=== PATIENT | male | born 1980 | race Caucasian/White ===

== ENCOUNTER 2021-12-09 23:57 | Emergency (ER) | payer BC, SELFPAY ==
--- NOTE | ~2021-12-09 | CT_ITS ---
EXAMINATION: CT brain wo con INDICATION: Head injury COMPARISON: None TECHNIQUE: Standard unenhanced head CT. The dose-length product (DLP) was 605.33 mGy-cm. The mA was a djusted according to patient size. Iterative reconstruction technique was employed. FINDINGS: There is no intracranial hemorrhage, acute infarction, or abnormal mass lesion. The ventric les are normal. There is no abnormal mass effect or midline shift. The vasquez-white matter differentiat ion is normal. The basal cisterns are patent. The orbits are normal. The paranasal sinuses, mastoids and calvarium are normal. IMPRESSION: 1. No acute intracranial abnormality. Reviewed, dictated and finalized at location A.
[2021-12-09 23:59] VITALS: BP 232/119; PULSE 98; RESP 20; TEMP 36.3; O2SAT 99
[2021-12-10] VITALS (24 sets, daily range): BP systolic 168–192; BP diastolic 95–141; PULSE 62–98; RESP 14–31; O2SAT 96–99
[2021-12-10] MEDS: LABETALOL HCL INJ 100 MG/20 ML VIAL 20 MG IV PUSH (00:16)
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
[2021-12-10] MEDS: amLODIPine BESYLATE 5 MG TABLET PO (01:49)
== END 2021-12-10 03:10 | disposition home or self-care (01) ==
PROVIDERS: Emergency Provider Emergency Medicine
DX: S09.90XA Unspecified injury of head, initial encounter (principal); I10 Essential (primary) hypertension; Y00.XXXA Assault by blunt object, initial encounter
CPT/HCPCS: 70450; 96374; 99284; A9270

== ENCOUNTER 2022-11-17 16:50 | Emergency (ER) | payer OTHER, SELFPAY ==
--- NOTE | 2022-11-17 16:56 | ED.HA ---
HPI - Headache General Stated Complaint: Headache Time Seen by Provider: 11/17/22 17:12 Mode of arrival: ambulatory Limitations: no limitations History of Present Illness HPI Narrative: 42-year-old male presents with concern for headache for about 1 week. He reports he has been out of his blood pressure medication for 1 month. He reports he can tell when his blood pressure is getting high by his symptoms which include irritability, headache, pressure under both arms, spotty vision. He is currently only having headache. He is in between primary care providers. He denies thunderclap headache. Reports headache is a 2/10. Reports headache is persistent, it may ease when he sleeps but returns when he wakes up. He denies weakness in any extremity, difficulty speaking or swallowing MD elicited complaint: headache Related Data Allergies Allergy/AdvReac Type Severity Reaction Status Date / Time No Known Allergies Allergy Verified 11/17/22 17:03 Review of Systems Review of Systems: CONSTITUTIONAL: Denies malaise, chills, sweats, or fever. EYES: Denies current visual changes, reports occasional spotty vision RESPIRATORY: Denies cough or dyspnea. NEUROLOGIC: Denies numbness, weakness. Reports headache. All systems reviewed & are unremarkable except as noted in HPI and below PMFSH Past Medical History Medical History Hypertension Family History Family History Other Family history of coronary artery disease Social History Social History Alcohol intake: never Comments At time of signature, agree with nursing past medical, surgical, social and family history. There is no relevant family history pertinent to the presenting complaint Exam Narrative: GENERAL: Well-appearing, well-nourished, and in no acute distress. HEAD: Normocephalic, atraumatic. EYES: PERRLA, sclera clear, and EOMI. No nystagmus. ENT: Nares clear, turbinates pink, no rhinorrhea or epistaxis. Mucous membranes moist. TM pearly vasquez with sharp light reflex bilaterally; no tragal tenderness. NECK: Supple. CHEST: No respiratory distress. Clear to auscultation. No bony deformities, no asymmetry. Speaks in full sentences. HEART: Regular rate and rhythm. No murmur heard. Normal peripheral pulses. EXTREMITIES: Grossly normal range of motion. No edema. Grossly normal strength and sensation. SKIN: Warm, dry, no visible rash. NEURO: Alert and oriented x3. No focal deficits. Cranial nerves II through XII grossly intact PSYCH: Normal mood and affect Course Course Emergency Course: Patient is aware of, understands and agrees to reasons to be transferred to emergency room Patient agrees to proceed directly to the emergency department. Portions of this record may have been created with voice recognition software Level of Care: Express Care Visit Vital Signs Vital signs: Reviewed. Transfer Transfered to: [facility] Transportation: Other (Private vehicle) Transfer rationale: Hypertensive urgency Accepting physician: Veto MDM - Headache MDM Narrative Medical decision making narrative: Exam findings warrant further evaluation emergency department; patient is non-toxic appearing and is in no distress. Critical Care Time Critical Care Time Critical Care Time: No Discharge Plan Discharge Clinical Impression: Hypertensive urgency Patient Disposition: Acute Care Hospital Condition: Stable Prescriptions: No Action amlodipine [Norvasc] 5 mg tablet 5 mg PO DAILY Qty: 90 1RF Follow-up/Referrals: UNKNOWN,DOCTOR [Non-Staff] - Time of Disposition: 17:22
[2022-11-17 17:02] VITALS: BP 208/123; PULSE 95; RESP 16; TEMP 36.7; O2SAT 99
[2022-11-17 17:04] VITALS: BP 208/123; PULSE 95; RESP 16; TEMP 36.7; O2SAT 99
== END 2022-11-17 17:22 | disposition short-term general hospital (02) ==
PROVIDERS: Emergency Provider Nurse Practitioner
DX: I16.0 Hypertensive urgency (principal)
CPT/HCPCS: 99213; G0463

== ENCOUNTER 2022-11-17 17:38 | Observation (INO) | payer OTHER, SELFPAY ==
--- NOTE | ~2022-11-17 | CT_ITS ---
EXAMINATION: CT brain wo con DATE: 11/17/2022 18:24 INDICATION: hyptertension, headache . TECHNIQUE: Computed tomography (CT) of the head was performed without intravenous contrast. The mA wa s adjusted according to patient size. Iterative reconstruction technique was employed. The dose-lengt h product was 605.33 mGy-cm. COMPARISON: 12/10/2021. FINDINGS: No acute intracranial hemorrhage or extra-axial fluid collection. No hydrocephalus, mass, or herniation. No acute ischemic infarct. Unremarkable dural venous sinus attenuation. No acute osseous abnormality. The aerated spaces are clear. IMPRESSION: No acute intracranial process. Reviewed, dictated and finalized at location K.
--- NOTE | ~2022-11-17 | US_ITS ---
EXAMINATION: US retroperitoneal duplex ltd DATE: 11/18/2022 14:06 CDT INDICATION: Hypertension TECHNIQUE: Multiple grayscale, color Doppler, and pulsed Doppler images of the kidneys and renal stephen araceli were obtained. COMPARISON: None. FINDINGS: The aorta peak systolic velocity is 126 cm/s. The right renal artery peak systolic velocity is 104 cm /s in the proximal segment, 172 cm/s in the mid segment, 72 cm/s in the distal segment. The left wilain l artery peak systolic velocity is 121 cm/s in the proximal segment, 81 cm/s in the mid segment, 77 c m/s in the distal segment. The renal artery/aorta systolic ratio on the right is 1.365 and on the left is 0.96. Notes: renal artery stenosis is >=180-200 cm/s or >3.5:1 ratio of renal artery velocity to aorta. Thi s correlates with >50-60% stenosis. IMPRESSION: 1. No Doppler evidence of renal artery stenosis. Reviewed, dictated and finalized at location A.
--- NOTE | ~2022-11-17 | XR_ITS ---
EXAMINATION: XR chest 1V Exam Date/Time: 11/17/2022 18:25 CDT HISTORY: hypertension Comparison: None. RESULT: Lines, tubes, and devices: None. Lungs and pleura: Clear. Cardiomediastinal silhouette: Unremarkable. Other: No acute osseous or upper abdominal finding. IMPRESSION: No acute cardiopulmonary process. Reviewed, dictated and finalized at location K.
[2022-11-17 17:41] VITALS: BP 219/114; PULSE 96; RESP 16; TEMP 36.7; O2SAT 98
--- NOTE | 2022-11-17 18:07 | ECG_ITS ---
Measurements Intervals [place] Rate: 89 P: 35 NM: 185 QRS: 44 QRSD: 109 T: 146 QT: 370 QTc: 452 Interpretive Statements SINUS RHYTHM LEFT VENTRICULAR HYPERTROPHY AND ST-T CHANGE BORDERLINE ST-T WAVE ABNORMALITY- INFERIOR LEADS BASELINE WANDER- V2-V6 BORDERLINE ECG NO PREVIOUS ECG AVAILABLE FOR COMPARISON Electronically Signed On 11-17-2022 20:19:52 CDT by Lauro Tristan D.O.
--- NOTE | 2022-11-17 18:16 | ED.HA ---
HPI - Headache General Chief Complaint: Headache Stated Complaint: HTN with LANDAVERDE Time Seen by Provider: 11/17/22 17:50 History of Present Illness HPI Narrative: 42 y/o M reports for evaluation from urgent care for a headache. Pt states he has been having a dull aching headach at the vertex of his head for ~3 days with intermittent surges of pulsating pain accompanied by seeing spots in his vision and numbness to the ventral aspect of his bilateral forearms. States the blurred vision and numbness lasts ~30 seconds then resolves. He went to urgent care for evaluation of his headache and was sent to the ED after his blood pressures were high. He states he currently is not having blurred vision or numbness and rates his headache a 2 out of 10. He has not taken anything for pain. He was started on 5 mg of amlodipine in February 2022 from the ED but discontinued his amlodipine after he ran out of his medication a couple months ago. States he never followed up with PCP. He denies chest pain or shortness of breath, nausea or vomiting, neck pain or back pain, abdominal pain, urinary changes, focal weakness, fever. Patient denies drug use other than marijuana. He does smoke a vape. Past family medical history significant for his father with CHF. Related Data Allergies Allergy/AdvReac Type Severity Reaction Status Date / Time No Known Allergies Allergy Verified 11/17/22 17:57 Review of Systems Review of Systems: CONSTITUTIONAL: Denies fever, chills EYES: See HPI ENT: Denies rhinorrhea, congestion, sore throat, or otalgia. CARDIOVASCULAR: Denies chest pain, palpitations, or edema. RESPIRATORY: Denies cough or dyspnea. GASTROINTESTINAL: Denies abdominal pain, nausea, vomiting, or diarrhea. GENITOURINARY: Denies dysuria or hematuria. SKIN: Denies rash or itching. MUSCULOSKELETAL: Denies back pain, joint pain, or myalgia. NEUROLOGIC: See HPI PSYCHIATRIC: Denies anxiety or depression. [facility] Past Medical History Medical History (Updated 11/18/22 @ 00:01 by Manuel Carrasco) Essential hypertension Nicotine dependence due to vaping tobacco product Obesity (BMI 30.0-34.9) Surgical History Surgical History (Updated 11/17/22 @ 23:48 by Chari Harrison DO) No history of previous surgery Family History Family History (Updated 11/17/22 @ 23:49 by Chari Harrison DO) Father Acute myocardial infarction, Onset Age: 60 Heart disease CHF (congestive heart failure) Social History Social History (Updated 11/17/22 @ 23:50 by Chari Harrison DO) Social History: The patient started smoking at age 23. He has smoked up to a pack of cigarettes per day but it switched to vaping in 2019. He vapes material that still has nicotine. 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 He has 1 son who is 16 years old. He rarely drinks alcohol and only in moderation. He is currently single but lives with his girlfriend. His girlfriend has 2 children. He smokes marijuana daily. 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 Patient resting comfortably exam bed. He is pleasant and conversational. HEAD: Normocephalic EYES: PERRLA, EOMI ENT: Nares clear. Mucous membranes moist. Oropharynx without tonsillar hypertrophy exudate or other lesions. Bilateral TMs are vasquez nonbulging. NECK: Supple. No nuchal rigidity. No cervical spino
[2022-11-17 18:25] LABS: Basophils Absolute Auto 0.1 K/mm3 (0.0-0.1); Basophils Percent Auto 0.7 % (0.2-1.2); Eosinophils Absolute Auto 0.2 K/mm3 (0-0.3); Eosinophils Percent Auto 2.1 % (0-4.4); Hematocrit 48.7 % (42.0-52.0); Hemoglobin 16.3 g/dL (14.0-18.0); Immature Granulocyte Absolute 0.05 K/mm3 (0.00-0.031); Immature Granulocyte Percent A 0.5 % (0-0.5); Lymphocytes Absolute Auto 2.92 K/mm3 (0.9-3.2); Lymphocytes Percent Auto 27.9 % (18.3-44.2); Mean Corpuscular HGB Conc 33.5 g/dl (32-36); Mean Corpuscular Hemoglobin 29.1 pg (26-34); Mean Corpuscular Volume 86.8 fl (80-100); Mean Platelet Volume 10.2 fl (7.4-10.4); Monocytes Absolute Auto 0.9 K/mm3 (0.1-0.6); Monocytes Percent Auto 8.3 % (2.6-8.5); Neutrophils Absolute Auto 6.4 K/mm3 (1.3-6.7); Neutrophils Percent Auto 60.5 % (45.5-73.1); Platelet Count Result 269 k/mm3 (150-375); Red Blood Count 5.61 M/mm3 (4.6-6.20); White Blood Count 10.5 K/mm3 (4.5-10.0)
[2022-11-17 18:26] LABS: Estimated CRCL calculation 123 ml/min; Estimated Glomerular Filt Rate > 60
[2022-11-17] MEDS: SODIUM CHLORIDE 0.9% IV 1,000 ML 999 ML IV CONT (18:33)
[2022-11-17] MEDS: ACETAMINOPHEN 500 MG TABLET 1000 MG PO (18:34)
[2022-11-17] MEDS: PROCHLORPERAZINE EDISYLATE 10 MG/2 ML VIAL IV PUSH (18:34)
[2022-11-17] MEDS: diphenhydrAMINE HCl INJ 50 MG/ML VIAL 25 MG IV PUSH (18:34)
[2022-11-17] MEDS: hydrALAZINE HCL 20 MG/ML VIAL 10 MG IV PUSH ×2 (19:27→22:24)
[2022-11-17 19:47] LABS: Alanine Aminotransferase 25 U/L (6-50); Alkaline Phosphatase 56 U/L (38-126); Anion Gap 6 mmol/L (8-16); Aspartate Amino Transferase 26 U/L (17-59); Bilirubin,Total 0.4 mg/dL (0.2-1.3); Blood Urea Nitrogen 14 mg/dL (9-20); Calcium 8.4 mg/dL (8.4-10.2); Carbon Dioxide 24 mmol/L (22-30); Chloride 108 mmol/L (98-107); Estimated CRCL calculation 137 ml/min; Estimated Glomerular Filt Rate > 60; Glucose 90 mg/dL (65-110); Potassium 3.5 mmol/L (3.4-5.0); Sodium 138 mmol/L (137-145); Troponin I 0.046 ng/mL (0.000-0.034)
[2022-11-17 19:51] LABS: Appearance Urine Clear (Clear); Bilirubin Urine Negative (Negative); Blood Urine Negative (Negative); Color Urine Yellow (Yellow); Glucose Urine UA Negative (Negative); Ketones Urine Negative (Negative); Leukocyte Esterase Ur Negative LEU/UL (Negative); Nitrate Urine Negative (Negative); Protein Urine Negative (Negative); Specific Grav Ur 1.017 (1.001-1.035); Urobilinogen Urine 0.2 mg/dL (<2.0); pH Urine 5.5 (5.0-9.0)
[2022-11-17 19:54] LABS: Add Urine Microscopic? NO
[2022-11-17] MEDS: amLODIPine BESYLATE 5 MG TABLET PO (20:38)
[2022-11-17 21:38] VITALS: BP 176/119; PULSE 71; RESP 15; O2SAT 97
--- NOTE | 2022-11-17 21:47 | PM.IMHP ---
H&P: HPI History of Present Illness Date/Time: 11/17/22 23:00 Chief Complaint: Headache, arm pain Narrative: 42-year-old male with a past medical history essential hypertension and obesity who presented to the ER with headache and bilateral posterior arm pain associated with some visual changes. On arrival to the ER patient was noted to be markedly hypertensive with blood pressures 230s/120. The patient was evaluated in the ER on approximately January and had blood pressures of 170-180 systolic. He was discharged home on Handshake and was given a 90 day supply with 1 refill. He ran out of the Antavo about 2 months ago. He thought that since he had made some lifestyle changes and had lost some weight that he probably did not need to worry about his blood pressures anymore. He failed to set up with a primary care physician and has not been checking his blood pressures at home. Approximately 3 days ago while at work he noticed a headache in the upper part of his head that is aching in nature ranging from a 2/10 intensity up to a 6/10 in intensity. It was associated with occasional specks of light in his vision and today he began having pain down his posterior upper arms. He denied any shortness of breath with activity. 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 He denies any palpitations. He denies any changes in urination. He has not had any nausea or vomiting. Denies any palpitations. He has been taking some Tylenol for his headache which improved his pain but it just recurs. His girlfriend tells him that he snores quite loudly. He does notice some mild lower extremity swelling from time to time after he has worked all day. He denies any orthopnea or paroxysmal nocturnal dyspnea. Review of Systems Review of Systems: 12 systems were reviewed with pertinent positives and negatives per HPI. Except as documented in the HPI, all other systems were reviewed and are negative. FOR[facility]LY [facility] Past Medical History Medical History Essential hypertension Nicotine dependence due to vaping tobacco product Obesity (BMI 30.0-34.9) Surgical History Surgical History (Updated 11/17/22 @ 23:48 by Chari Harrison DO) No history of previous surgery Family History Family History (Updated 11/17/22 @ 23:49 by Chari Harrison DO) Father Acute myocardial infarction, Onset Age: 60 Heart disease CHF (congestive heart failure) Social History Social History (Updated 11/17/22 @ 23:50 by Chari Harrison DO) Social History: The patient started smoking at age 23. He has smoked up to a pack of cigarettes per day but it switched to vaping in 2019. He vapes material that still has nicotine. 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 He has 1 son who is 16 years old. He rarely drinks alcohol and only in moderation. He is currently single but lives with his girlfriend. His girlfriend has 2 children. He smokes marijuana daily. Smoking status: Current every day smoker Tobacco type: e-cigarettes/vaping Alcohol intake: current Substance use: current Substance use type: marijuana Other substance usage details: Daily Lack of Transportation: No Lack of Food: Never True Current Housing: I Have Housing Concerned About Future Housing: No Difficulty Paying Gas/Electric Bills: No Difficulty Paying for Meds: No Currently Unemployed: No Education: Trade/Vocational Certificate Difficulty w/ Childcare or Family Care: No Additional occupation/education comments: [employer] Spiritual care concerns: No Meds Home Medications and Allergies Home Medications Medication Instructions Recorded Confirmed Type amlodipine 5 mg tablet (Norvasc) 5 mg PO DAILY #90 tabs 12/10/21 11/17/22 Rx Allergies Allergy/AdvReac Type Severity Reaction Status Date / Time No Known Allergies Allergy Verified 11/17/22 17:57
[2022-11-17 22:05] LABS: NT Pro B Type Natriuretic Pept 789 pg/mL (19.9-100)
[2022-11-17 22:12] VITALS: BP 186/139; PULSE 84; RESP 16; TEMP 36.4; O2SAT 100
--- NOTE | 2022-11-17 22:12 | ADMGEN ---
This patient, Brien Murray, was admitted to IMU Room 212-01. Patient/family oriented to hospital policies and general routines including ID bracelet, bed and alarms, visiting hours, pain management, procedures, bathroom and other care routines, personal items, smoking policy, room service/diet, and visiting hours. Information on how to activate the Rapid Response Team has been discussed. Patient/Family are encouraged to report perceived risks to care and to ask questions if they do not understand what they are told or what they should do.
[2022-11-17 22:13] VITALS: BMI 34.6
[2022-11-17 22:30] VITALS: PULSE 86
[2022-11-17 23:03] LABS: Troponin I 0.056 ng/mL (0.000-0.034)
[2022-11-17 23:52] VITALS: BP 156/114; PULSE 76; RESP 16; TEMP 36.5; O2SAT 100
[2022-11-18] VITALS (21 sets, daily range): BP systolic 165–214; BP diastolic 88–130; PULSE 68–123; RESP 16–20; TEMP 36.1–36.4; O2SAT 94–100
--- NOTE | 2022-11-18 | ECHO_ITS ---
Patient Info Name: Brien Murray Age: 42 years : 1980 Gender: Male Ht: 72 in Wt: 245 lbs BSA: 2.41 m2 HR: 81 bpm Heart Rhythm: Indeterminant Technical Quality: Good Exam Date: 11/18/2022 9:41 AM Exam Location: [facility] Patient Status: Outpatient Admit Date: 11/17/2022 Staff Ordering Physician: Chari Harrison DO Supervisor Slitting And Shipping: Prasad Pope RDCS Attending Provider: Chari Harrison DO Referring Physician: Hunter JORDAN; Exam Type: CA echo doppler color flow Study Info Indications - hypertensive crisis/elevated troponin Complete two-dimensional, color flow and Doppler transthoracic echocardiogram is performed. Summary 1. Complete two-dimensional, color flow and Doppler transthoracic echocardiogram is performed. 2. Left ventricular chamber dimension is moderately enlarged. 3. Left ventricular systolic function is mildly reduced, estimated at 50-55%. 4. There is severely increased left ventricular wall thickness. 5. The left ventricular diastolic function is grade I diastolic dysfunction. 6. Left atrial chamber dimension is mildly enlarged. 7. There is mild tricuspid valve regurgitation. Left Ventricle Left ventricular chamber dimension is moderately enlarged. Left ventricular systolic function is mildly reduced, estimated at 50-55%. There is severely increased left ventricular wall thickness. The left ventricular diastolic function is grade I diastolic dysfunction. Right Ventricle Right ventricular chamber dimension is normal. Right ventricular systolic function is normal. Left Atria Left atrial chamber dimension is mildly enlarged. Right Atria Right atrial chamber dimension is normal. Atrial Septum Intact interatrial septum visualized by color flow imaging. Aortic Valve The aortic valve is probable trileaflet. There is mild aortic valve sclerosis. There is no aortic valve stenosis. There is trace aortic valve regurgitation. Pulmonic Valve The pulmonic valve is normal. There is no pulmonic valve stenosis. There is trace pulmonic regurgitation. Mitral Valve The mitral valve has normal leaflets. There is no mitral valve stenosis. There is trace mitral valve regurgitation. Tricuspid Valve The tricuspid valve leaflets are normal. There is no significant tricuspid valve stenosis. There is mild tricuspid valve regurgitation. No pulmonary hypertension, estimated pulmonary arterial systolic pressure is 13 mmHg. Pericardium/Pleural The pericardium appears normal. There is no pericardial effusion. Inferior Vena Cava Normal inferior vena cava with >50% collapse upon inspiration consistent with normal right atrial pressure, 10 mmHg. Aorta The aortic root size at the sinus of Valsalva is mildly dilated. Left Ventricular Outflow Tract Name Value Normal LVOT 2D LVOT Diameter 2.0 cm LVOT Doppler LVOT Peak Gradient 3 mmHg LVOT Mean Gradient 2 mmHg LVOT VTI 18 cm LVOT VTI/AV VTI Ratio 0.8 LVOT Stroke Volume 57 ml LVOT CO 6.2 l/min LVOT CI 2.6 l/min/m2
[2022-11-18 01:40] LABS: Cholesterol 213 mg/dL (0-200); HDL Direct 50 mg/dL; Triglycerides 97 mg/dL (<150)
[2022-11-18 01:51] LABS: LDL Cholesterol Direct 118 mg/dL
[2022-11-18 02:11] LABS: Troponin I 0.061 ng/mL (0.000-0.034)
[2022-11-18] MEDS: amLODIPine BESYLATE 5 MG TABLET PO ×2 (08:47→16:29)
[2022-11-18] MEDS: ASPIRIN 81 MG ENTERIC TABLET PO (08:47)
[2022-11-18] MEDS: ENOXAPARIN 40 MG/0.4 ML SYRINGE SUB-Q (08:47)
--- NOTE | 2022-11-18 09:56 | PM.IMPN ---
Progress Note: A&P Assessment and Plan (1) Hypertensive urgency: Code(s): I16.0 - Hypertensive urgency Status: Inactive (2) Snoring: Code(s): R06.83 - Snoring Status: Acute (3) Elevated troponin: Code(s): R77.8 - Other specified abnormalities of plasma proteins Status: Acute (4) Nicotine dependence due to vaping tobacco product: Code(s): F17.290 - Nicotine dependence, other tobacco product, uncomplicated Status: Acute Plan Hypertension urgency Blood pressure is not controlled Increase Norvasc to 10 mg daily p.o., And hydrochlorothiazide 25 mg daily p.o.: Clonidine 0.1 mg b.i.d. p.o. Labetalol 20 mg IV push once Hydralazine 10 mg IV push as needed with parameters Follow renal Doppler, need to rule out renal artery stenosis Elevated troponin Possible demand ischemia, due to uncontrolled hypertension Continue aspirin 81 mg daily p.o., Imdur 60 mg daily p.o. ECG shows sinus rhythm, T-wave inversion lead 1 aVL Follow echocardiogram contour sander Consult welding estimator for evaluation treatment, The patient does snore and is obese. He has a large neck circumference and crowded posterior oropharynx. He would benefit from outpatient sleep study. The importance of tobacco cessation including in the form of vaping was discussed with the patient 6 minutes was spent in tobacco cessation education. Patient has been admitted as observation status. Subjective Date/time seen: 11/18/22 09:56 Interval history: I saw on exam patient today, patient feels headache, denied chest pain, shortness of breath abdomen pain fever or chills. Exam Narrative: GENERAL: Pleasant, in no acute distress. Well-nourished. - EYES: EOMI. Anicteric. - HENT: Moist mucous membranes. - LUNGS: Clear to auscultation bilaterally, no wheezing, rhonchi, or rales. - CARDIOVASCULAR: Regular rate and rhythm. No murmur. No JVD. - ABDOMEN: Soft, non-tender and non-distended. No palpable masses. - EXTREMITIES: No edema. Peripheral pulses 2+. Non-tender. - NEUROLOGIC: No focal neurological deficits. CN II-XII grossly intact. - PSYCHIATRIC: Awake, Alert and oriented x 3. Appropriate mood and affect. - SKIN: No rashes or lesions. Warm. - LYMPH: No cervical lymphadenopathy. Objective Data Vital Signs Vital Signs: Vital Signs - 24 hr 11/17/22 17:41 11/17/22 21:38 11/17/22 22:12 Temperature 98.0 F 97.6 F Pulse Rate 96 71 84 Respiratory Rate 16 15 16 Blood Pressure 219/114 H 176/119 H 186/139 H Pulse Oximetry 98 97 100 Oxygen Delivery Room Air 11/17/22 22:30 11/17/22 23:52 11/18/22 00:00 Temperature 97.7 F Pulse Rate 86 76 97 Respiratory Rate 16 Blood Pressure 156/114 H Pulse Oximetry 100 Oxygen Delivery 11/18/22 00:00 11/18/22 02:00 11/18/22 04:00 Temperature Pulse Rate 94 98 91 Respiratory Rate 16 Blood Pressure Pulse Oximetry 100 Oxygen Delivery Room Air 11/18/22 04:00 11/18/22 04:00 11/18/22 05:50 Temperature 97.6 F Pulse Rate 91 90 86 Respiratory Rate 16 16 Blood Pressure 183/102 H Pulse Oximetry 100 94 Oxygen Delivery Room Air 11/18/22 08:00 11/18/22 08:15 11/18/22 08:00 Temperature 97.3 F L Pulse Rate 74 84 Respiratory Rate 18 Blood Pressure 188/94 H Pulse Oximetry 98 Oxygen Delivery Room Air Intake/Output Intake/Output: Intake & Output 11/15/22 11/16/22 11/17/22 11/18/22 23:59 23:59 23:59 23:59 Intake Total 1000 Balance 1000 Meds/Results Medications: Active Medications Generic Name Dose Route Start Last Admin Trade Name Manuel PRN Reason Stop Dose Admin Amlodipine Besylate 5 mg 11/18/22 09:00 11/18/22 08:47 Amlodipine Besylate 5 Mg Tablet PO 5 mg QAM WONG Administration Aspirin 81 mg 11/18/22 09:00 11/18/22 08:47 Aspirin 81 Mg Enteric Tablet PO 81 mg QAM WONG Administration Enoxaparin Sodium 40 mg 11/18/22 09:00 11/18/22 08:47 Enoxaparin 40 Mg/0.4 Ml [facility]
--- NOTE | 2022-11-18 11:47 | PM.CNCAR ---
Assessment and Plan Assessment and plan (1) Elevated troponin: Code(s): R77.8 - Other specified abnormalities of plasma proteins Status: Acute Assessment and Plan: Elevated troponin is not related to acute coronary syndrome. It is secondary to his very severe hypertension. BP as elevated is 208/123 upon admission. (2) Hypertensive crisis: Code(s): I16.9 - Hypertensive crisis, unspecified Status: Acute Assessment and Plan: Will order a renal artery ultrasound as well as renin/aldosterone. Patient has marked hypertension. Slow and progressive decline in his blood pressure is recommended. Aggressive BP lowering below 160 initially should be avoided as soon as to cause neurological issues. Regardless I agree with restarting his amlodipine. Hydrochlorothiazide has already been started and I am in agreement. I will also put him on some losartan 25 mg p.o. daily and discontinue his isosorbide mononitrate. Echocardiogram is ordered and will be reviewed (3) Nicotine dependence due to vaping tobacco product: Code(s): F17.290 - Nicotine dependence, other tobacco product, uncomplicated Status: Acute Assessment and Plan: Tobacco abuse counseling performed (4) Marijuana use, continuous: Code(s): F12.90 - Cannabis use, unspecified, uncomplicated Status: Acute (5) Snoring: Code(s): R06.83 - Snoring Status: Acute Assessment and Plan: Will order an ApneaLink to evaluate for sleep apnea History of Present Illness History of Present Illness Consult date/time: 11/18/22 11:47 Requesting physician: Michael Padilla MD Consult reason: Other (Elevated troponin) Reason For Visit: hypertensive crisis Narrative: Reason for consultation: Elevated troponin Date of service 11/18/2022 Requesting provider: Dr. Padilla History patient is a 42-year-old male who has high blood pressure. He was formally on amlodipine 5 mg daily. He did not establish himself with a doctor after being diagnosed with hypertension last year. He has been out of his amlodipine for a couple of months. He came to hospital because of headaches. He has noticed over the past week or 2 a severe pounding headache. His blood pressure in the emergency room was as high as 208/123. In the process of workup troponins were drawn which were minimally elevated up to level was 0.06 and Cardiology consultation was therefore requested. Patient denies any chest pain, shortness of breath, syncope, presyncope, paroxysmal nocturnal dyspnea, orthopnea, edema palpitations. Headache today is better but still present. Blood pressure is better but still significantly elevated. Review of Systems Review of Systems: All systems reviewed & are unremarkable except as noted in HPI and below Constitutional: Constitutional: Denies body ache(s) Eyes: Eyes: Denies blurry vision ENT: Denies Normal hearing present Cardiovascular: Cardiovascular: Denies chest pain Respiratory: Respiratory: Denies chest congestion Gastrointestinal: Gastrointestinal: Denies abdominal pain Genitourinary: Genitourinary: Denies hematuria Musculoskeletal: Musculoskeletal: Denies back pain Integumentary/Breasts: Skin/Breast: Denies skin pain Neurologic: Denies Abnormal speech present and Reports headache(s) Psychiatric: Psychiatric: Denies anxiety Endocrine: Endocrine: Denies excessive sweating Hematologic/Lymphatic: Hematologic/Lymphatic: Denies easy bleeding Allergic/Immunologic: Allergic/Immunologic: Denies GI upset with certain foods PMFSH Past Medical History Medical History Essential hypertension Nicotine dependence due to vaping tobacco product Obesity (BMI 30.0-34.9) Surgical History Surgical History No history of previous surgery Family History Family History (Reviewed 11/18/22 @ 11:49 by Amber
[2022-11-18] MEDS: LOSARTAN POTASSIUM 25 MG TABLET PO (12:11)
[2022-11-18] MEDS: hydrALAZINE HCL 20 MG/ML VIAL 10 MG IV PUSH (13:14)
[2022-11-18] MEDS: hydroCHLOROthiazide 25 MG TABLET PO (16:29)
[2022-11-18] MEDS: cloNIDine HCL 0.1 MG TABLET PO (20:35)
[2022-11-18] MEDS: LABETALOL HCL INJ 100 MG/20 ML VIAL 20 MG IV PUSH (20:36)
[2022-11-19] VITALS (18 sets, daily range): BP systolic 135–206; BP diastolic 78–110; PULSE 63–108; RESP 16–20; TEMP 36.2–37.7; O2SAT 96–99
[2022-11-19] MEDS: hydrALAZINE HCL 20 MG/ML VIAL 10 MG IV PUSH ×2 (05:40→20:59)
[2022-11-19] MEDS: ASPIRIN 81 MG ENTERIC TABLET PO (08:40)
[2022-11-19] MEDS: amLODIPine BESYLATE 5 MG TABLET 10 MG PO (08:40)
[2022-11-19] MEDS: ENOXAPARIN 40 MG/0.4 ML SYRINGE SUB-Q (08:41)
[2022-11-19] MEDS: hydroCHLOROthiazide 25 MG TABLET PO (08:41)
[2022-11-19] MEDS: cloNIDine HCL 0.1 MG TABLET PO (08:41)
[2022-11-19] MEDS: LOSARTAN POTASSIUM 25 MG TABLET PO (08:41)
--- NOTE | 2022-11-19 09:11 | PM.IMPN ---
Progress Note: A&P Assessment and Plan (1) Hypertensive urgency: Code(s): I16.0 - Hypertensive urgency Status: Inactive (2) Snoring: Code(s): R06.83 - Snoring Status: Acute (3) Elevated troponin: Code(s): R77.8 - Other specified abnormalities of plasma proteins Status: Acute (4) Nicotine dependence due to vaping tobacco product: Code(s): F17.290 - Nicotine dependence, other tobacco product, uncomplicated Status: Acute Plan Hypertension urgency Blood pressure is not controlled Increase Norvasc to 10 mg daily p.o., And hydrochlorothiazide 25 mg daily p.o.: Clonidine 0.1 mg b.i.d. p.o. Labetalol 20 mg IV push once Hydralazine 10 mg IV push as needed with parameters Follow renal Doppler, need to rule out renal artery stenosis; renal Doppler shows no evidence of stenosis Also started losartan 25 mg daily p.o. per job placement officer Blood pressure is trending down Elevated troponin Possible demand ischemia, due to uncontrolled hypertension Continue aspirin 81 mg daily p.o., Imdur 60 mg daily p.o. ECG shows sinus rhythm, T-wave inversion lead 1 aVL Follow echocardiogram quality assurance monitor Consult job placement officer for evaluation treatment, appreciate cardiology consultation, Cardiology does not consider ACS The patient does snore and is obese. He has a large neck circumference and crowded posterior oropharynx. He would benefit from outpatient sleep study. The importance of tobacco cessation including in the form of vaping was discussed with the patient 6 minutes was spent in tobacco cessation education. Patient has been admitted as observation status. Subjective Date/time seen: 11/19/22 09:11 Interval history: I saw on exam patient today, patient feels headache, denied chest pain, shortness of breath abdomen pain fever or chills. Exam Narrative: GENERAL: Pleasant, in no acute distress. Well-nourished. - EYES: EOMI. Anicteric. - HENT: Moist mucous membranes. - LUNGS: Clear to auscultation bilaterally, no wheezing, rhonchi, or rales. - CARDIOVASCULAR: Regular rate and rhythm. No murmur. No JVD. - ABDOMEN: Soft, non-tender and non-distended. No palpable masses. - EXTREMITIES: No edema. Peripheral pulses 2+. Non-tender. - NEUROLOGIC: No focal neurological deficits. CN II-XII grossly intact. - PSYCHIATRIC: Awake, Alert and oriented x 3. Appropriate mood and affect. - SKIN: No rashes or lesions. Warm. - LYMPH: No cervical lymphadenopathy. Objective Data Vital Signs Vital Signs: Vital Signs - 24 hr 11/18/22 10:00 11/18/22 10:44 11/18/22 11:59 Temperature 97.0 F L Pulse Rate 88 68 Respiratory Rate 18 Blood Pressure 198/130 H Pulse Oximetry 98 97 Oxygen Delivery Room Air Fraction of Inspired Oxygen 11/18/22 12:00 11/18/22 12:00 11/18/22 13:39 Temperature Pulse Rate 95 Respiratory Rate Blood Pressure 209/122 H Pulse Oximetry Oxygen Delivery Room Air Fraction of Inspired Oxygen 11/18/22 16:19 11/18/22 14:00 11/18/22 16:00 Temperature 97.2 F L Pulse Rate 123 H 98 99 Respiratory Rate 20 Blood Pressure 203/126 H Pulse Oximetry 97 Oxygen Delivery Fraction of Inspired Oxygen 11/18/22 16:00 11/18/22 17:40 11/18/22 18:00 Temperature Pulse Rate 98 Respiratory Rate Blood Pressure 165/104 H Pulse Oximetry Oxygen Delivery Room Air Fraction of Inspired Oxygen 11/18/22 20:00 11/18/22 20:36 11/18/22 20:00 Temperature 97.6 F Pulse Rate 87 105 H 87 Respiratory Rate 20 20 Blood Pressure 214/109 H Pulse Oximetry 97 97 Oxygen Delivery Room Air Fraction of Inspired Oxygen 11/18/22 20:00 11/18/22 22:00 11/18/22 22:30 Temperature Pulse Rate 109 H 82 86 Respiratory Rate Blood Pressure Pulse Oximetry 97 Oxygen Delivery Room Air Fraction of Inspired Oxygen 21 11/18/22 23:23 11/19/22 00:00 11/19/22 00:00 Temperature 97.6 F Pulse Rate 88 88 81 Respirato
--- NOTE | 2022-11-19 09:13 | PM.PNCARD ---
Progress Note: A&P Assessment and Plan (1) Elevated troponin: Code(s): R77.8 - Other specified abnormalities of plasma proteins Status: Acute Assessment and Plan: Elevated troponin is not related to acute coronary syndrome. It is secondary to his very severe hypertension. BP as elevated is 208/123 upon admission. (2) Hypertensive crisis: Code(s): I16.9 - Hypertensive crisis, unspecified Status: Acute Assessment and Plan: Renin and aldosterone levels are pending. Renal artery ultrasound negative and negative apnea link. Will discontinue clonidine as this will be very difficult to get him off of as an outpatient. It makes much more sense to use more appropriate medications. Will therefore increase his losartan to 50 mg daily. Will start Bystolic 10 mg p.o. daily. Continue amlodipine and hydrochlorothiazide. Will consider adding spironolactone as an outpatient if need be. (3) Nicotine dependence due to vaping tobacco product: Code(s): F17.290 - Nicotine dependence, other tobacco product, uncomplicated Status: Acute Assessment and Plan: Tobacco abuse counseling performed (4) Marijuana use, continuous: Code(s): F12.90 - Cannabis use, unspecified, uncomplicated Status: Acute (5) Snoring: Code(s): R06.83 - Snoring Status: Acute Assessment and Plan: Apnea link negative Subjective Date/time seen: 11/19/22 09:13 Interval history: 42-year-old with hypertensive crisis. Date of service 11/19/2022: Feels good today. No headache. No chest pain. No shortness of breath. Review of Systems Review of Systems: All systems reviewed & are unremarkable except as noted in HPI and below Constitutional: Constitutional: Denies body ache(s), Denies excessive sweating and Reports headache(s) Eyes: Eyes: Denies blurry vision ENT: Denies Normal hearing present and Reports headache(s) Cardiovascular: Cardiovascular: Denies chest pain Respiratory: Respiratory: Denies chest congestion Gastrointestinal: Gastrointestinal: Denies abdominal pain Genitourinary: Genitourinary: Denies hematuria Musculoskeletal: Musculoskeletal: Denies back pain Integumentary/Breasts: Skin/Breast: Denies skin pain Neurologic: Denies Normal hearing present, Denies Abnormal speech present and Reports headache(s) Psychiatric: Psychiatric: Denies anxiety Endocrine: Endocrine: Denies excessive sweating Hematologic/Lymphatic: Hematologic/Lymphatic: Denies easy bleeding Allergic/Immunologic: Allergic/Immunologic: Denies GI upset with certain foods Exam Narrative: Alert oriented appears stated age Const: General: comfortable and no acute distress HENMT: Ears: TM's normal bilaterally Face/Nose/Sinus: Normal nares present Eyes: General: appearance normal, both eyes and all related structures Sclera: sclerae normal Neck: Neck: supple and no JVD Chest: Other: No reproducible chest wall pain to palpation Resp: Effort & Inspection: normal respiratory effort Auscultation: clear to auscultation bilaterally Cardio: Rate: regular rate Rhythm: regular rhythm Heart sounds: no murmurs GI: Inspection: non-distended Auscultation: normal bowel sounds Skin: General skin exam: normal color Neuro: Cranial nerves: No Normal hearing present Speech: normal speech and No Abnormal speech present Sensory Exam: normal sensation Extrem: General: normal to inspection Psych: Mental Status: mental status grossly normal Affect: normal affect Objective Data Vital Signs Vital Signs: Vital Signs - 24 hr 11/18/22 10:00 11/18/22 10:44 11/18/22 11:59 Temperature 36.1 C L Pulse Rate 88 68 Respiratory Rate 18 Blood Pressure 198/130 H Pulse Oximetry 98 97 Oxygen Delivery Room Air Fraction of Inspired Oxygen 11/18/22 12:00 11/18/22 12:00 11/18/22 13:39 Temperature Pulse Rate 95 Respiratory Rate Blood Pressure 209/122 H
[2022-11-19] MEDS: NEBIVOLOL HCL 5 MG TABLET 10 MG PO (10:11)
[2022-11-19 12:05] LABS: Amphetamine Screen Urine Negative (Negative); Barbiturate Screen Urine Negative (Negative); Benzodiazepines Screen Urine Negative (Negative); Cannabinoid Screen Urine Positive (Negative); Cocaine Screen Urine Negative (Negative); Methadone Screen Urine Negative (Negative); Opiate Screen Urine Negative (Negative); Phencyclidine Screen Urine Negative (Negative)
[2022-11-19 18:08] LABS: Glucose Point of Care 147 mg/dl (65-105)
[2022-11-19] MEDS: ACETAMINOPHEN 500 MG TABLET 1000 MG PO (22:23)
[2022-11-19 23:42] LABS: Glucose Point of Care 121 mg/dl (65-105)
[2022-11-20] VITALS (8 sets, daily range): BP systolic 151–161; BP diastolic 93–108; PULSE 66–105; RESP 18–20; TEMP 36.5–36.9; O2SAT 97–100
[2022-11-20 04:55] LABS: Basophils Absolute Auto 0.1 K/mm3 (0.0-0.1); Basophils Percent Auto 0.7 % (0.2-1.2); Eosinophils Absolute Auto 0.2 K/mm3 (0-0.3); Eosinophils Percent Auto 1.9 % (0-4.4); Hematocrit 52.7 % (42.0-52.0); Hemoglobin 18.2 g/dL (14.0-18.0); Immature Granulocyte Absolute 0.05 K/mm3 (0.00-0.031); Immature Granulocyte Percent A 0.5 % (0-0.5); Lymphocytes Absolute Auto 2.65 K/mm3 (0.9-3.2); Lymphocytes Percent Auto 25.2 % (18.3-44.2); Mean Corpuscular HGB Conc 34.5 g/dl (32-36); Mean Corpuscular Volume 84.1 fl (80-100); Mean Platelet Volume 9.5 fl (7.4-10.4); Monocytes Absolute Auto 1.1 K/mm3 (0.1-0.6); Monocytes Percent Auto 10.9 % (2.6-8.5); Neutrophils Absolute Auto 6.4 K/mm3 (1.3-6.7); Neutrophils Percent Auto 60.8 % (45.5-73.1); Platelet Count Result 271 k/mm3 (150-375); Red Blood Count 6.27 M/mm3 (4.6-6.20); White Blood Count 10.5 K/mm3 (4.5-10.0)
[2022-11-20 06:33] LABS: Anion Gap 12 mmol/L (8-16); Blood Urea Nitrogen 20 mg/dL (9-20); Calcium 10.1 mg/dL (8.4-10.2); Carbon Dioxide 25 mmol/L (22-30); Chloride 102 mmol/L (98-107); Estimated CRCL calculation 120 ml/min; Estimated Glomerular Filt Rate > 60; Glucose 106 mg/dL (65-110); Sodium 139 mmol/L (137-145)
[2022-11-20 06:39] LABS: Glucose Point of Care 116 mg/dl (65-105)
[2022-11-20 07:51] LABS: Glucose Point of Care 110 mg/dl (65-105)
[2022-11-20] MEDS: ENOXAPARIN 40 MG/0.4 ML SYRINGE SUB-Q (08:15)
[2022-11-20] MEDS: ASPIRIN 81 MG ENTERIC TABLET PO (08:15)
[2022-11-20] MEDS: LOSARTAN POTASSIUM 50 MG TABLET PO (08:16)
[2022-11-20] MEDS: amLODIPine BESYLATE 5 MG TABLET 10 MG PO (08:16)
[2022-11-20] MEDS: NEBIVOLOL HCL 5 MG TABLET 10 MG PO (08:16)
[2022-11-20] MEDS: hydroCHLOROthiazide 25 MG TABLET PO (08:16)
--- NOTE | 2022-11-20 08:31 | PM.IMPN ---
Progress Note: A&P Assessment and Plan (1) Hypertensive urgency: Code(s): I16.0 - Hypertensive urgency Status: Inactive (2) Snoring: Code(s): R06.83 - Snoring Status: Acute (3) Elevated troponin: Code(s): R77.8 - Other specified abnormalities of plasma proteins Status: Acute (4) Nicotine dependence due to vaping tobacco product: Code(s): F17.290 - Nicotine dependence, other tobacco product, uncomplicated Status: Acute Plan Hypertension urgency Blood pressure is not controlled on Norvasc to 10 mg daily p.o., hydrochlorothiazide 25 mg daily p.o. Clonidine 0.1 mg b.i.d. p.o. Labetalol 20 mg IV push once Hydralazine 10 mg IV push as needed with parameters Follow renal Doppler, need to rule out renal artery stenosis; renal Doppler shows no evidence of stenosis per middleware engineer increase his losartan to 50 mg daily.? start Bystolic 10 mg p.o. daily.? Continue amlodipine and hydrochlorothiazide.? adding spironolactone as an outpatient dc clonidine po Elevated troponin Possible demand ischemia, due to uncontrolled hypertension Continue aspirin 81 mg daily p.o., Imdur 60 mg daily p.o. ECG shows sinus rhythm, T-wave inversion lead 1 aVL Follow echocardiogram air sampling and monitoring Consult middleware engineer for evaluation treatment, appreciate cardiology consultation, Cardiology does not consider ACS The patient does snore and is obese. He has a large neck circumference and crowded posterior oropharynx. He would benefit from outpatient sleep study. The importance of tobacco cessation including in the form of vaping was discussed with the patient 6 minutes was spent in tobacco cessation education. Patient has been admitted as observation status. Subjective Date/time seen: 11/20/22 08:31 Interval history: pt has no headahe and BP is well controlled. no new issues or events o/n. afeb vss Exam Narrative: GENERAL: Pleasant, in no acute distress. Well-nourished. - EYES: EOMI. Anicteric. - HENT: Moist mucous membranes. - LUNGS: Clear to auscultation bilaterally, no wheezing, rhonchi, or rales. - CARDIOVASCULAR: Regular rate and rhythm. No murmur. No JVD. - ABDOMEN: Soft, non-tender and non-distended. No palpable masses. - EXTREMITIES: No edema. Peripheral pulses 2+. Non-tender. - NEUROLOGIC: No focal neurological deficits. CN II-XII grossly intact. - PSYCHIATRIC: Awake, Alert and oriented x 3. Appropriate mood and affect. - SKIN: No rashes or lesions. Warm. - LYMPH: No cervical lymphadenopathy. Objective Data Vital Signs Vital Signs: Vital Signs - 24 hr 11/19/22 10:00 11/19/22 10:11 11/19/22 10:12 Temperature Pulse Rate 104 H 98 98 Pulse Rate [Monitor] Respiratory Rate Blood Pressure 159/103 H Pulse Oximetry Oxygen Delivery Fraction of Inspired Oxygen 11/19/22 12:00 11/19/22 12:00 11/19/22 12:00 Temperature 99.8 F H Pulse Rate 108 H 92 Pulse Rate [Monitor] Respiratory Rate 16 Blood Pressure 152/105 H Pulse Oximetry 97 97 Oxygen Delivery Room Air Fraction of Inspired Oxygen 11/19/22 14:00 11/19/22 16:00 11/19/22 16:00 Temperature 98 F Pulse Rate 75 73 76 Pulse Rate [Monitor] Respiratory Rate 18 Blood Pressure 135/85 Pulse Oximetry 96 Oxygen Delivery Fraction of Inspired Oxygen 11/19/22 16:00 11/19/22 16:00 11/19/22 18:00 Temperature Pulse Rate 69 Pulse Rate [Monitor] Respiratory Rate Blood Pressure 135/85 Pulse Oximetry 96 Oxygen Delivery Room Air Fraction of Inspired Oxygen 11/19/22 20:00 11/19/22 20:44 11/19/22 19:42 Temperature 97.6 F 97.1 F L Pulse Rate 63 78 Pulse Rate [Monitor] 63 Respiratory Rate 20 20 Blood Pressure 188/110 H 182/108 H 188/110 H Pulse Oximetry 97 98 Oxygen Delivery Fraction of Inspired Oxygen 11/19/22 19:42 11/19/22 20:00 11/19/22 21:37 Temperature Pulse Rate 63 80 86 Pulse Rate [Monitor] Respiratory Rate
--- NOTE | 2022-11-20 08:34 | PM.DS ---
DS: Admitting Diagnosis Discharge Date 11/20 Admitting Diagnosis (1) Hypertensive urgency: ?Code(s): I16.0 - Hypertensive urgency ?Status:?Inactive (2) Snoring: ?Code(s): R06.83 - Snoring ?Status:?Acute (3) Elevated troponin: ?Code(s): R77.8 - Other specified abnormalities of plasma proteins ?Status:?Acute (4) Nicotine dependence due to vaping tobacco product: ?Code(s): F17.290 - Nicotine dependence, other tobacco product, uncomplicated ?Status:?Acute DS: Discharge Diagnosis Discharge Diagnosis (1) Hypertensive urgency: Code(s): I16.0 - Hypertensive urgency Status: Inactive (2) Snoring: Code(s): R06.83 - Snoring Status: Acute (3) Elevated troponin: Code(s): R77.8 - Other specified abnormalities of plasma proteins Status: Acute (4) Nicotine dependence due to vaping tobacco product: Code(s): F17.290 - Nicotine dependence, other tobacco product, uncomplicated Status: Acute DS: Summary Hospital Course Reason for hospitalization: Headache Hospital Course: Per H&P, 42-year-old male with a past medical history essential hypertension and obesity who presented to the ER with headache and bilateral posterior arm pain associated with some visual changes.? On arrival to the ER patient was noted to be markedly hypertensive with blood pressures 230s/120.? The patient was evaluated in the ER on approximately January and had blood pressures of 170-180 systolic.? He was discharged home on [employer] and was given a 90 day supply with 1 refill.? He ran out of the [employer] about 2 months ago.? He thought that since he had made some lifestyle changes and had lost some weight that he probably did not need to worry about his blood pressures anymore.? He failed to set up with a primary care physician and has not been checking his blood pressures at home.? Approximately 3 days ago while at work he noticed a headache in the upper part of his head that is aching in nature ranging from a 2/10 intensity up to a 6/10 in intensity.? It was associated with occasional specks of light in his vision and today he began having pain down his posterior upper arms.? He denied any shortness of breath with activity.? 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 He denies any palpitations.? He denies any changes in urination.? He has not had any nausea or vomiting.? Denies any palpitations.? He has been taking some Tylenol for his headache which improved his pain but it just recurs.? His girlfriend tells him that he snores quite loudly.? He does notice some mild lower extremity swelling from time to time after he has worked all day.? He denies any orthopnea or paroxysmal nocturnal dyspnea. The following medical issues have been addressed in the hospital Hypertension urgency Blood pressure is not controlled on? Norvasc to 10 mg daily p.o.,? hydrochlorothiazide 25 mg daily p.o. Clonidine 0.1 mg b.i.d. p.o. Labetalol 20 mg IV push once Hydralazine 10 mg IV push as needed with parameters Follow renal Doppler, need to rule out renal artery stenosis; renal Doppler shows no evidence of stenosis per contingents supervisor increase his losartan to 50 mg daily.?? start Bystolic 10 mg p.o. daily.? Continue amlodipine and hydrochlorothiazide.? adding spironolactone as an outpatient? dc clonidine po Elevated troponin Possible demand ischemia, due to uncontrolled hypertension Continue aspirin 81 mg daily p.o., Imdur 60 mg daily p.o. ECG shows sinus rhythm, T-wave inversion lead 1 aVL Follow echocardiogram: Left ventricular chamber dimension is moderately enlarged. ? Left ventricular systolic function is mildly reduced, estimated at 50-55%. ? There is severely increased left ventricular wall thickness. ? The left ventricular diastolic function is grade I diastolic dysfunction. awake overnight monitor, no sign of ischemia or significant arrhythmia Consu
--- NOTE | 2022-11-20 09:47 | PM.PNCARD ---
Progress Note: A&P Assessment and Plan (1) Elevated troponin: Code(s): R77.8 - Other specified abnormalities of plasma proteins Status: Acute Assessment and Plan: Elevated troponin is not related to acute coronary syndrome. It is secondary to his very severe hypertension. BP as elevated is 208/123 upon admission. (2) Hypertensive crisis: Code(s): I16.9 - Hypertensive crisis, unspecified Status: Acute Assessment and Plan: Renin and aldosterone levels are pending. Renal artery ultrasound negative and negative apnea link. Will discontinue clonidine as this will be very difficult to get him off of as an outpatient. Will Continue losartan to 50 mg daily and. Bystolic 10 mg p.o. daily. Continue amlodipine and hydrochlorothiazide. Will consider adding spironolactone as an outpatient if need be. OK for discharge today. (3) Nicotine dependence due to vaping tobacco product: Code(s): F17.290 - Nicotine dependence, other tobacco product, uncomplicated Status: Acute Assessment and Plan: Tobacco abuse counseling performed (4) Marijuana use, continuous: Code(s): F12.90 - Cannabis use, unspecified, uncomplicated Status: Acute (5) Snoring: Code(s): R06.83 - Snoring Status: Acute Assessment and Plan: Apnea link negative Subjective Date/time seen: 11/20/22 09:47 Interval history: 42-year-old with hypertensive crisis. Date of service 11/19/2022: Feels good today. No headache. No chest pain. No shortness of breath. Date of service 11/20/2022: Continues to feel well, no complaints. Denies chest pain, shortness of breath. Plan for discharge today. Review of Systems Review of Systems: All systems reviewed & are unremarkable except as noted in HPI and below Constitutional: Constitutional: Denies body ache(s), Denies excessive sweating and Reports headache(s) Eyes: Eyes: Denies blurry vision ENT: Denies Normal hearing present and Reports headache(s) Cardiovascular: Cardiovascular: Denies chest pain Respiratory: Respiratory: Denies chest congestion Gastrointestinal: Gastrointestinal: Denies abdominal pain Genitourinary: Genitourinary: Denies hematuria Musculoskeletal: Musculoskeletal: Denies back pain Integumentary/Breasts: Skin/Breast: Denies skin pain Neurologic: Denies Normal hearing present, Denies Abnormal speech present and Reports headache(s) Psychiatric: Psychiatric: Denies anxiety Endocrine: Endocrine: Denies excessive sweating Hematologic/Lymphatic: Hematologic/Lymphatic: Denies easy bleeding Allergic/Immunologic: Allergic/Immunologic: Denies GI upset with certain foods Exam Narrative: Alert oriented appears stated age Const: General: comfortable and no acute distress HENMT: Ears: TM's normal bilaterally Face/Nose/Sinus: Normal nares present Eyes: General: appearance normal, both eyes and all related structures Sclera: sclerae normal Neck: Neck: supple and no JVD Chest: Other: No reproducible chest wall pain to palpation Resp: Effort & Inspection: normal respiratory effort Auscultation: clear to auscultation bilaterally Cardio: Rate: regular rate Rhythm: regular rhythm Heart sounds: no murmurs GI: Inspection: non-distended Auscultation: normal bowel sounds Skin: General skin exam: normal color Neuro: Cranial nerves: No Normal hearing present Speech: normal speech and No Abnormal speech present Sensory Exam: normal sensation Extrem: General: normal to inspection Psych: Mental Status: mental status grossly normal Affect: normal affect Objective Data Vital Signs Vital Signs: Vital Signs - 24 hr 11/19/22 10:00 11/19/22 10:11 11/19/22 10:12 Temperature Pulse Rate 104 H 98 98 Pulse Rate [Monitor] Respiratory Rate Blood Pressure 159/103 H Pulse Oximetry Oxygen Delivery Fraction of Inspired Oxygen 11/19/22 12:00 11/19/22 12:00 11/19/22
[2022-11-24 15:07] LABS: Renin 2.06 ng/mL/h (0.25-5.82)
== END 2022-11-20 09:42 | disposition home or self-care (01) ==
LOC: ANHED 20:34 → ANHIMU 21:50
PROVIDERS: Internal Medicine Cardiovascular Disease; Admitting Provider Internal Medicine; Emergency Provider Physician Assistant; Visit Provider Hospitalist
DX: I16.0 Hypertensive urgency (principal); R77.8 Other specified abnormalities of plasma proteins; R06.83 Snoring; R20.0 Anesthesia of skin; I42.2 Other hypertrophic cardiomyopathy; I07.1 Rheumatic tricuspid insufficiency; I35.8 Other nonrheumatic aortic valve disorders; R79.89 Other specified abnormal findings of blood chemistry; E66.9 Obesity, unspecified; Z68.31 Body mass index [BMI] 31.0-31.9, adult; F17.290 Nicotine dependence, other tobacco product, uncomplicated; F12.90 Cannabis use, unspecified, uncomplicated; F10.90 Alcohol use, unspecified, uncomplicated; Z79.899 Other long term (current) drug therapy
CPT/HCPCS: 36415; 70450; 71045; 80048; 80053; 80061; 80307; 81003; 82088; 82948; 83880; 84244; 84443; 84484; 85025; 93005; 93306; 93976; 94762; 96361; 96372; 96374; 96375; 96376; 99285; A9270; G0378; J0360; J0780; J1200; J1650; J7030

== ENCOUNTER 2024-02-23 12:05 | Emergency (ER) | payer OTHER, SELFPAY ==
--- NOTE | 2024-02-23 12:13 | ED.GENADULT ---
HPI - General Adult General Chief complaint: Upper Respiratory Infection Stated complaint: sore throat Time Seen by Provider: 02/23/24 12:13 Source: patient Mode of arrival: ambulatory Limitations: no limitations History of Present Illness HPI narrative: 44-year-old male patient presents to the [facility] with complaints of sore throat for the past 3 days. Patient denies any fevers that he is aware of but states he did have the chills last night. Denies any ear pain. Denies any coughing, chest pain or shortness of breath. Patient states he has been taking Mucinex but denies any Tylenol ibuprofen for the pain. Patient states he does have issues with tooth infections but denies any tooth pain at this time. Related Data Home Medications Medication Instructions Recorded Confirmed aspirin 81 mg tablet,delayed 81 mg PO DAILY 02/23/24 02/23/24 release (Adult Low Dose Aspirin) tldpojdp-hswhpvov-kwvfj acid 400 1 tablet PO DAILY 02/23/24 02/23/24 mcg-vit K 20 mcg-lycop 300 mcg tablet Allergies Allergy/AdvReac Type Severity Reaction Status Date / Time No Known Allergies Allergy Verified 02/23/24 12:21 Review of Systems Review of Systems: CONSTITUTIONAL: Denies fever, chills, or sweats. EYES: Denies visual changes, redness, or discharge. ENT: Denies rhinorrhea, congestion, Positive sore throat, or otalgia. CARDIOVASCULAR: Denies chest pain, palpitations, or edema. RESPIRATORY: Denies cough or dyspnea. GASTROINTESTINAL: Denies abdominal pain, nausea, vomiting, or diarrhea. GENITOURINARY: Denies dysuria or hematuria. SKIN: Denies rash or itching. MUSCULOSKELETAL: Denies back pain, joint pain, or myalgia. NEUROLOGIC: Denies headache, numbness, or weakness. PSYCHIATRIC: Denies anxiety or depression. [facility] Past Medical History Medical History Essential hypertension Nicotine dependence due to vaping tobacco product Obesity (BMI 30.0-34.9) Surgical History Surgical History No history of previous surgery Family History Family History Father Acute myocardial infarction, Onset Age: 60 Heart disease CHF (congestive heart failure) Social History Social History Social History: The patient started smoking at age 23. He has smoked up to a pack of cigarettes per day but it switched to vaping in 2019. He vapes material that still has nicotine. 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 He has 1 son who is 16 years old. He rarely drinks alcohol and only in moderation. He is currently single but lives with his girlfriend. His girlfriend has 2 children. He smokes marijuana daily. Smoking status: Current every day smoker Tobacco type: e-cigarettes/vaping Alcohol intake: current Substance use: current Substance use type: marijuana Other substance usage details: Daily Lack of Transportation: No Lack of Food: Never True Current Housing: I Have Housing Concerned About Future Housing: No Difficulty Paying Gas/Electric Bills: No Difficulty Paying for Meds: No Currently Unemployed: No Education: Trade/Vocational Certificate Difficulty w/ Childcare or Family Care: No Additional occupation/education comments: [employer] Spiritual care concerns: No Comments At the time of my signature I agree with nursing past medical history, surgical, social, and family history. There is no relevant family history pertinent to the presenting complaint. Exam Narrative: GENERAL: Well-appearing, well-nourished, and in no acute distress. HEAD: Normocephalic, atraumatic. EYES: PERRLA and EOMI. ENT: Nares with erythema edema noted to the right near, no rhinorrhea or epistaxis. Mucous membranes moist. posterior pharynx with +tonsillar enlargement with white exudates noted bilaterally with bright red erythema. There is also a left lower 3rd molar with surrounding erythema and does appear to be infected to the middle of the tooth with yellow pus. NECK: Supple. Bilateral cervical lymphadenopathy and tenderness noted on palpation CHEST: Clear to auscultation. No respiratory distress. HEART: Regular rate and rhythm. No murmur heard. Normal peripheral pulses. ABDOMEN: Soft, nontender, nondistended, normal active bowel sounds. EXTREMITIES: Normal range of motion. No edema. SKIN: Warm, dry, no rash. NEURO: No focal deficits. Alert and oriented x3. Course Course Level of Care: Express Care Visit Reevaluation(s) Reevaluation #1: re-evaluated patient notified him that his mono and strep today were both negative. We will send the swab off to lab for a strep culture however I am highly suspicious that the infection to the back the throat could be caused by this to that also appears to be infected to the left bottom. Discussed with patient that I will go ahead and place him on antibiotics as well as some steroids to help with the throat pain and I highly recommend that when he once he is done to follow-up with the dentist to see if he needs that tooth removed. Patient verbalized understanding denies any other questions or concerns at this time Date: 02/23/24 Time: 13:04 Date: 02/23/24 Vital Signs Vital signs: Vital Signs Temperature 36.6 C 02/23/24 12:16 Pulse Rate 109 H 02/23/24 12:16 Respiratory Rate 18 02/23/24 12:16 Blood Pressure 160/108 H 02/23/24 12:16 Pulse Oximetry 99 02/23/24 12:16 Oxygen Delivery Room Air 02/23/24 12:16 Temperature 36.6 C 02/23/24 12:16 Pulse Rate 109 H 02/23/24 12:16 Respiratory Rate 18 02/23/24 12:16 Blood Pressure 160/108 H 02/23/24 12:16 Pulse Oximetry 99 02/23/24 12:16 Oxygen Delivery Room Air 02/23/24 12:16 Vital signs reviewed. The patient has been informed that they may have pre-hypertension or Hypertension based on a BP reading in the department. I recommend that the patient call the primary care provider listed on their discharge instructions or a physician of their choice this week to arrange follow up for further evaluation of possible pre-hypertension or Hypertension Medical Decision Making MDM Narrative Medical decision making narrative: discussed with patient that we will test him today for strep, mono as well as give him some ketorolac to help with the throat pain. I will reassess patient once this has resulted. Differential Diagnosis Differential Diagnosis: Differential diagnosis: Viral pharyngitis, pharyngitis, group A strep, infectious mononucleosis, gonococcal pharyngitis, exudative pharyngitis, oral candidiasis. Chronic allergies, postnasal drip, GERD, abscess formation, but glottitis, retropharyngeal abscess formation, or airway obstruction. Vital Signs Vital Signs: Vital Signs Temperature 36.6 C 02/23/24 12:16 Pulse Rate 109 H 02/23/24 12:16 Respiratory Rate 18 02/23/24 12:16 Blood Pressure 160/108 H 02/23/24 12:16 Pulse Oximetry 99 02/23/24 12:16 Oxygen Delivery Room Air 02/23/24 12:16 Temperature 36.6 C 02/23/24 12:16 Pulse Rate 109 H 02/23/24 12:16 Respiratory Rate 18 02/23/24 12:16 Blood Pressure 160/108 H 02/23/24 12:16 Pulse Oximetry 99 02/23/24 12:16 Oxygen Delivery Room Air 02/23/24 12:16 Lab Data Labs: Lab Results 02/23/24 Range/Units 12:38 POC Grp A Strep Screen Negative (Negative) Critical Care Time Critical Care Time Critical Care Time: No Discharge Plan Discharge Clinical Impression: Tonsillitis with exudate, Dental infection Patient Disposition: Home, Self-Care Condition: Stable Instructions: Antibiotic Form, Toothache (ED) Additional Instructions: A sore throat can be caused by an infection from a virus or bacteria. Sore throat can also be caused by postnasal drip, allergies, and exposure to smoke. A viral sore throat last 3-4 days and cannot be treated with antibiotics. One type of sore throat virus, infectious mononucleosis ( mono ), can last for 3 weeks and older children. The germs that cause these infections are contagious and can be spread by coughing or sharing drinks or utensils. Contact her primary care physician or go to the ER if: Your trouble breathing or swallowing because her throat is swollen or sore. You're drooling because it hurts too much to swallow. You're painful lump in your throat go away after 5 days. You're fever is higher than 10 2??F or last longer than 3 days. You have confusion. You are blood in your throat. You're sore throat should feel better within 3-5 days without treatment if it is caused by virus. You may need the following: Ibuprofen or Tylenol as needed for pain or fever Gargle warm salt water Drink more liquids, cold or warm drinks may help soothe her throat. Humidifier in your room. Cough drops, ice, soft foods, or popsicles may help soothe her throat. A spoonful of honey could help with inflammation and soothe her throat. Wash her hands with soap and water, do not share food or drinks, throat away her toothbrush after 72 hours. Prescriptions: New amoxicillin-pot clavulanate 875-125 mg tablet 1 tablet PO Q12H 7 Days Qty: 14 0RF prednisone 20 mg tablet 40 mg PO DAILY 5 Days Qty: 10 0RF No Action aspirin [Adult Low Dose Aspirin] 81 mg Tablet,Delayed Release (Dr/Ec) 81 mg PO DAILY Men's Multivitamin 400-20-300 mcg Tablet 1 tablet PO DAILY losartan [Cozaar] 50 mg Tablet 50 mg PO DAILY Qty: 30 1RF amlodipine [Norvasc] 5 mg Tablet 10 mg PO QAM Qty: 30 1RF hydrochlorothiazide 25 mg Tablet 25 mg PO QAM Qty: 3 1RF spironolactone [Aldactone] 25 mg tablet 25 mg PO DAILY Qty: 30 1RF Follow-up/Referrals: PHYSICIAN,MACHINE II CUTTER [Primary Care Provider] - Time of Disposition: 13:03
[2024-02-23 12:16] VITALS: BP 160/108; PULSE 109; RESP 18; TEMP 36.6; O2SAT 99
[2024-02-23 12:40] LABS: EDSTREPNEGPOS1 Negative (Negative)
[2024-02-23] MEDS: KETOROLAC (*BKC) 60 MG/2 ML VIAL IM (12:43)
[2024-02-23 13:10] VITALS: BP 150/89; PULSE 60
[2024-02-23 13:10] LABS: EDMONONEGPOS Negative (Positive)
== END 2024-02-23 13:10 | disposition home or self-care (01) ==
PROVIDERS: Emergency Provider Nurse Practitioner Family
DX: J03.90 Acute tonsillitis, unspecified (principal); K04.7 Periapical abscess without sinus; I10 Essential (primary) hypertension; F17.290 Nicotine dependence, other tobacco product, uncomplicated; F12.90 Cannabis use, unspecified, uncomplicated; E66.9 Obesity, unspecified; Z68.39 Body mass index [BMI] 39.0-39.9, adult; Z79.82 Long term (current) use of aspirin
CPT/HCPCS: 36416; 86308; 87081; 87880; 96372; 99213; G0463; J1885

== ENCOUNTER 2024-07-08 15:18 | Emergency (ER) | payer OTHER, SELFPAY ==
[2024-07-08] VITALS (39 sets, daily range): BP systolic 135–167; BP diastolic 76–109; PULSE 74–95; RESP 12–22; TEMP 36.7–37; O2SAT 93–99
--- NOTE | ~2024-07-08 | XR_ITS ---
EXAM: XR shoulder RT min 2V DATE: 07/08/2024 17:06 HISTORY: post reduction . COMPARISON: 07/08/2024 at 3:58 PM. FINDINGS: Normal mineralization. Small Hill-Sachs defect. Suggestion of cortical irregularity along the inferior glenoid margin. No lytic or blastic lesion. Joint spaces are maintained. No erosion or p eriosteal change. Soft tissues within normal limits. IMPRESSION: Successful right shoulder reduction. Small Hill-Sachs defect. An inferior glenoid fractur e suspected, recommend a Grashey view of the shoulder for further evaluation. Reviewed, dictated and finalized at location K. IMPRESSION: Successful right shoulder reduction. Small Hill-Sachs defect. An in ferior glenoid fracture suspected, recommend a Grashey view of the shoulder for further evaluation.
--- NOTE | ~2024-07-08 | XR_ITS ---
EXAM: XR shoulder RT min 2V DATE: 07/08/2024 16:02 HISTORY: dislocation . COMPARISON: 10/26/2018. FINDINGS: Normal mineralization. Anterior and inferior dislocation of the right humerus. No acute fr acture identified. Chronic Hill-Sachs defect. The AC joint is aligned. No lytic or blastic lesion. No erosion or periosteal change. Soft tissues within normal limits. IMPRESSION: Anterior inferior right shoulder dislocation. Reviewed, dictated and finalized at location K.
[2024-07-08] MEDS: HYDROmorphone HCL INJ (*CRX) 1 MG/ML SYR IV PUSH (16:14)
[2024-07-08 16:22] LABS: Basophils Absolute Auto 0.1 K/mm3 (0.0-0.1); Basophils Percent Auto 0.8 % (0.2-1.2); Eosinophils Absolute Auto 0.2 K/mm3 (0-0.3); Eosinophils Percent Auto 2.2 % (0-4.4); Hematocrit 46.5 % (42.0-52.0); Hemoglobin 15.9 g/dL (14.0-18.0); Immature Granulocyte Absolute 0.06 K/mm3 (0.00-0.031); Immature Granulocyte Percent A 0.6 % (0-0.5); Lymphocytes Absolute Auto 2.28 K/mm3 (0.9-3.2); Lymphocytes Percent Auto 21.8 % (18.3-44.2); Mean Corpuscular HGB Conc 34.2 g/dl (32-36); Mean Corpuscular Hemoglobin 29.3 pg (26-34); Mean Corpuscular Volume 85.8 fl (80-100); Mean Platelet Volume 9.7 fl (7.4-10.4); Monocytes Absolute Auto 0.8 K/mm3 (0.1-0.6); Neutrophils Percent Auto 66.6 % (45.5-73.1); Platelet Count Result 290 k/mm3 (150-375); Red Blood Count 5.42 M/mm3 (4.6-6.20); Red Cell Distribution Width 13.1 % (11.5-14.5); White Blood Count 10.5 K/mm3 (4.5-10.0)
[2024-07-08 16:38] LABS: Anion Gap 14 mmol/L (4-12); Blood Urea Nitrogen 21 mg/dL (9-20); Calcium 9.7 mg/dL (8.4-10.2); Carbon Dioxide 23 mmol/L (22-30); Chloride 102 mmol/L (98-107); Estimated CRCL calculation 136 ml/min; Estimated Glomerular Filt Rate > 60; Glucose 112 mg/dL (65-110); Potassium 3.9 mmol/L (3.4-5.0); Sodium 139 mmol/L (137-145)
[2024-07-08] MEDS: PROPOFOL IV EMULSION 200 MG/20 ML VIAL 62.5 MG IV PUSH (16:58)
--- OUTSIDE RECORDS SUMMARY | 2024-07-08 17:15 | XMS_ITS | Clinical Summary ---
Author Organization [facility] Address [address], [address] [address] Phone Care Team Providers Care Floor Associate Name Role Phone Provider, None Primary Care Provider Unavailabl e Allergies No known active allergies Medications HYDROcodone-ulises taminophen (NORCO) 5-325 MG Tablet Take 1 Tab by mouth every 6 hours as needed for Severe pain. 8 Tab 06/14/2018 Active meloxicam (MOBIC) 15 MG Tablet Take 1 Tab by mouth daily. 10 Tab 03/02/2019 Active HYDROcodone-ulises taminophen (NORCO) 5-325 MG Tablet Take 1-2 Tabs by mouth every 6 hours as needed for Moderate or more severe pain. 12 Tab 03/02/2019 Active Social History Tobacco Use Types Packs/Day Years Used Date Smoking Tobacco: Every Day Cigarettes Smokeless Tobacco: Never Alcohol Use Standard Drinks/Week Comments No 0 (1 standard drink = 0.6 oz pur e alcohol) Sex and Gender Information Value Date Recorded Sex Assigned at Not on file Legal Sex Male 7:56 PM CDT Gender Identity Not on file Sexual Orientation Not on file Last Filed Vital Signs Vital Sign Reading Time Taken Comments Blood Pressure 186/118 03/02/2019 5:15 AM GIFT WRAPPER Pulse 95 03/02/2019 5:15 AM GIFT WRAPPER Temperature 36 C (96.8 F) 03/02/2019 2:16 AM GIFT WRAPPER Respiratory Rate 17 03/02/2019 5:00 AM GIFT WRAPPER Oxygen Saturation 96% 03/02/2019 5:15 AM GIFT WRAPPER Inhaled Oxygen Concentration - - Weight 111.1 kg (245 lb) 03/02/2019 2:16 AM GIFT WRAPPER Height 177.8 cm (5' 10 ) 03/02/2019 2:16 AM GIFT WRAPPER Body Mass Index 35.15 03/02/2019 2:16 AM GIFT WRAPPER Plan of Treatment Health Maintenance Due Date Last Done Comments Hepatitis C Virus (HCV) Screening 1982 TdaP Immunization 1982 Hepatitis B Immunization (1 of 3 - 19+ 3-dose series) 2001 Influenza Immunization (#1) 2023 SARS-COV-2 Immunization (2023- season) 2023 Respiratory Syncytial Virus (RSV) Immunization (Adult) (1 - 1-dose 75+ series) 2057 Meningococcal Immunization (ACWY) Aged Out No longer eligible based on patient's age to complete this topic Pneumococcal Immunization Combined Aged Out No longer eligible based on patient's age to complete this topic Rotavirus Immunization Aged Out No lo nger eligible based on patient's age to complete this topic Care Teams Floor Associate Relationship Specialty Start Date End Date Provider, None [place] PCP - General 06/14/18
--- NOTE | 2024-07-08 18:04 | ED_ITS ---
HPI - Extremity Injury (Upper) General Chief Complaint: Extremity Injury, Upper Stated Complaint: right shoulder dislocation Time Seen by Provider: 07/08/24 15:48 History of Present Illness HPI narrative: 44-year-old male presenting to the emergency department for right shoulder dislocation. He has a history of recurrent dislocations previously. Previously been evaluated orthopedic surgeon recommended operative intervention as he has had recurrence. He has not followed up or had any operations done. Today he had a nontraumatic dislocation while he was reaching above overhead and felt a pop and dislocation his shoulder. Did not fall or hit his head. Was otherwise in his normal state of health. Rates the pain 6/10 without movement. No neuropathy or tingling in his digits. No weakness. Related Data Home Medications ?Medication ?Instructions ?Recorded ?Confirmed ?Last Taken ?Type aspirin 81 mg tablet,delayed 81 mg PO DAILY 02/23/24 02/23/24 Unknown History release (Adult Low Dose Aspirin) kfkfllkt-znhlyfwi-fvpem acid 400 1 tablet PO DAILY 02/23/24 02/23/24 Unknown History mcg-vit K 20 mcg-lycop 300 mcg tablet Allergies Allergy/AdvReac Type Severity Reaction Status Date / Time No Known Allergies Allergy Verified 02/23/24 12:21 Review of Systems 2 Review of Systems: As reviewed above in HPI [facility] Past Medical History Medical History Nicotine dependence due to vaping tobacco product Obesity (BMI 30.0-34.9) Essential hypertension Surgical History Surgical History No history of previous surgery Family History Family History Father Acute myocardial infarction, Onset Age: 60 Heart disease CHF (congestive heart failure) Social History Social History Social History: The patient started smoking at age 23. He has smoked up to a pack of cigarettes per day but it switched to vaping in 2019. He vapes material that still has nicotine. 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 He has 1 son who is 16 years old. He rarely drinks alcohol and only in moderation. He is currently single but lives with his girlfriend. His girlfriend has 2 children. He smokes marijuana daily. Smoking status: Current every day smoker Tobacco type: e-cigarettes/vaping Alcohol intake: current Substance use: current Substance use type: marijuana Other substance usage details: Daily Lack of Transportation: No Lack of Food: Never True Current Housing: I Have Housing Concerned About Future Housing: No Difficulty Paying Gas/Electric Bills: No Difficulty Paying for Meds: No Currently Unemployed: No Education: Trade/Vocational Certificate Difficulty w/ Childcare or Family Care: No Additional occupation/education comments: [employer]iculous Spiritual care concerns: No Exam 2 Narrative: GENERAL: [Well-appearing, well-nourished, and in no acute distress.] HEAD: [Normocephalic, atraumatic.] EYES: [PERRLA and EOMI.] ENT: Nares clear, no rhinorrhea or epistaxis. Mucous membranes moist. NECK: Supple. CHEST: [Clear to auscultation. No respiratory distress.] HEART: [Regular rate and rhythm]. No murmur heard. [Normal peripheral pulses.] ABDOMEN: [Soft, nondistended], [nontender], [No rigidity or guarding] EXTREMITIES: Squaring off of the right shoulder consistent with dislocation. Tenderness to palpation over the right lateral AC joint with a step-off. Distal neuro vasculature intact, elbow flexion extension full, field hauler strength full, able to oppose each digit, able to make an okay sign and a thumbs-up sign. SKIN: Warm, dry, no rash. NEURO: [No focal deficits]. Alert and oriented [x3.] PSYCH: [Normal mood and affect.] Course Vital Signs Vital signs: Vital Signs Temperature 36.7 C 07/08/24 15:23 Pulse Rate 82 07/08/24 15:23 Respiratory Rate 18 07/08/24 15:23 Blood Pressure 167/95 H 07/08/24 15:23 Pulse Oximetry 97 07/08/24 15:23 Oxygen Delivery Room Air 07/08/24 15:23 Temperature 37.0 C 07/08/24 16:34 Pulse Rate 81 07/08/24 17:59 Respiratory Rate 20 07/08/24 17:59 Blood Pressure 136/92 H 07/08/24 17:59 Pulse Oximetry 95 07/08/24 17:59 Oxygen Delivery Nasal Cannula 07/08/24 17:04 Oxygen Flow Rate 4 07/08/24 17:04 Procedures Orthopedic Joint Reduction Joint #1: Orthopedic Joint Reduction Date: 07/08/24 Orthopedic Joint Reduction Time: 16:54 Time Out Performed: Yes Side: right Joint Reduction Location: shoulder Analgesia: procedural sedation Pre-Procedure Neuro Vascular Exam: normal Local Anesthesia: none Shoulder Technique Used (if applicable): traction/counter-traction and external rotation Technique used: traction/counter-traction Post-reduction neuro exam: intact Post-reduction vascular: intact Post Reduction X-Ray Obtained: Yes Post Reduction X-Ray Results: reduced Splint Applied: Yes (Sling) Patient Tolerated Procedure: well and no complications Procedural Sedation Procedural Sedation #1: Procedural Sedation Date: 07/08/24 Procedural Sedation Time: 16:54 Presedation Evaluation: Mallampati 3, last oral intake 4 hours prior, zayas present, good mobility of the jaw. Procedure: Right-sided shoulder dislocation reduction Provider Performed: sedation and procedure Time Out: Patient's name age date of and procedure, location confirmed with patient and his wrist pain. Informed Consent Obtained: yes Equipment in Room: bag and mask, capnography, train announcer, crash cart, oxygen, pulse oximeter and suction Plan for Sedation: moderate sedation ASA Class: I Mallampati Classification: class III NPO Status: last solid food (hours ago) and last liquid food (hours ago) Explanation to Patient/Family: Risk/Benefits/Alternatives and Pt/Family agreed with plan Pt. Educated on Procedural Sedation: Yes Re-evaluated immediately prior: Yes Preparation: train announcer applied, pulse oximeter, capnometry used, supplemental O2 applied, reversal agents at bedside, suction/airway equipment at bedside and IV secured IV Propofol dose (mg): 150 (50 mg aliquots x3) Patient Tolerated Procedure: well and no complications Complications: none Total Sedation Time (min): 11 MDM - Extremity Injury (Upper) MDM Narrative Medical decision making narrative: 44-year-old male presenting for right shoulder dislocation. He has had recurrent dislocations in the past. He is neurovascularly intact with good distal pulsations, field hauler strength, thumb opposition and finger strength full. Clinical exam consistent with dislocation, x-ray obtained confirming anterior dislocation. Patient is hemodynamically stable, procedural sedation was used with propofol induction. Total of 150 mg of propofol and 50 mg aliquots was used with appropriate sedation. Reduction completed on 1st attempt. Sling was applied patient was monitored postprocedure early and woke up without any difficulty. Remained hemodynamically stable here in the emergency department for several hours. Postprocedural x-ray shows successful reduction of the right shoulder with a small Hill-Sachs deformity which patient is aware of from prior reductions. Currently does not have an orthopedic doctor to see, 1 we provided for follow-up. He is safe and stable for discharge home at this time. Sling was applied and he was given orthopedics follow-up. Patient's questions were answered he was discharged home at this time. Medical Records Attestation: I reviewed the patient's medical records. Lab Data Attestation: I reviewed the patient's lab results. 07/08/24 16:18 07/08/24 16:18 Labs: Lab Results 07/08/24 Range/Units 16:18 WBC 10.5 H (4.5-10.0) K/mm3 RBC 5.42 (4.6-6.20) M/mm3 Hgb 15.9 (14.0-18.0) g/dL Hct 46.5 (42.0-52.0) % MCV 85.8 (80-100) fl MCH 29.3 (26-34) pg MCHC 34.2 (32-36) g/dl RDW 13.1 (11.5-14.5) % Plt Count 290 (150-375) k/mm3 MPV 9.7 (7.4-10.4) fl Immature Gran % (Auto) 0.6 H (0-0.5) % Neut % (Auto) 66.6 (45.5-73.1) % Lymph % (Auto) 21.8 (18.3-44.2) % [place] % (Auto) 8.0 (2.6-8.5) % Eos % (Auto) 2.2 (0-4.4) % Baso % (Auto) 0.8 (0.2-1.2) % Lymph # (Auto) 2.28 (0.9-3.2) K/mm3 [place] # (Auto) 0.8 H (0.1-0.6) K/mm3 Eos # (Auto) 0.2 (0-0.3) K/mm3 Baso # (Auto) 0.1 (0.0-0.1) K/mm3 Abs Immat Gran (auto) 0.06 H (0.00-0.031) K/mm3 Absolute Neuts (auto) 7.0 H (1.3-6.7) K/mm3 Absolute Nucleated RBC 0.000 (0.0-0.012) K/mm3 Nucleated RBC % 0.0 (0.0-0.2) % Sodium 139 (137-145) mmol/L Potassium 3.9 (3.4-5.0) mmol/L Chloride 102 (98-107) mmol/L Carbon Dioxide 23 (22-30) mmol/L Anion Gap 14 H (4-12) mmol/L BUN 21 H (9-20) mg/dL Creatinine 0.86 (0.7-1.3) mg/dL Estim Creat Clear Calc 136 ml/min Estimated GFR > 60 (59 - ) Glucose 112 H (65-110) mg/dL Calcium 9.7 (8.4-10.2) mg/dL Imaging Data Attestation: I personally reviewed and interpreted this imaging study as follows: My impression: Impressions Shoulder X-Ray 07/08/24 16:07 IMPRESSION: Anterior inferior right shoulder dislocation. Shoulder X-Ray 07/08/24 17:22 IMPRESSION: Successful right shoulder reduction. Small Hill-Sachs defect. An inferior glenoid fracture suspected, recommend a Grashey view of the shoulder for further evaluation. Discharge Plan Discharge Clinical Impression: Anterior dislocation of right shoulder, Hill Sachs deformity, right Patient Disposition: Home, Self-Care Condition: Stable Instructions: Shoulder Dislocation (ED), Moderate Sedation (ED), Closed Reduction (ED), Antibiotic Form Additional Instructions: We have successfully reduced your right shoulder, there appears to be deformity in the inferior glenoid part of the right shoulder probably related from frequent dislocations and could be an occult fracture causing recurrent dislocation. Maintain the sling for comfort and take Tylenol ibuprofen for pain control. We will refer you to orthopedic surgeon for evaluation and potential operative intervention given the recurrent dislocations and deformity. Return with any new or worsening concerns. Patient Language: [place]an Prescriptions: No Action aspirin [Adult Low Dose Aspirin] 81 mg Tablet,Delayed Release (Dr/Ec) 81 mg PO DAILY Men's Multivitamin 400-20-300 mcg Tablet 1 tablet PO DAILY amoxicillin-pot clavulanate 875-125 mg tablet 1 tablet PO Q12H 7 Days Qty: 14 0RF prednisone 20 mg tablet 40 mg PO DAILY 5 Days Qty: 10 0RF losartan [Cozaar] 50 mg Tablet 50 mg PO DAILY Qty: 30 1RF amlodipine [Norvasc] 5 mg Tablet 10 mg PO QAM Qty: 30 1RF hydrochlorothiazide 25 mg Tablet 25 mg PO QAM Qty: 3 1RF spironolactone [Aldactone] 25 mg tablet 25 mg PO DAILY Qty: 30 1RF Follow-up/Referrals: Rahul Berger MD [Physician] - 1 Week (Recurrent shoulder dislocation, Hill-Sachs deformity) PHYSICIAN,CYLINDER SANDER OPERATOR [Primary Care Provider] - Time of Disposition: 18:11
--- OUTSIDE RECORDS SUMMARY | 2024-07-08 18:12 | XMS_ITS | Clinical Summary ---
Author Organization [facility] Address [address], [address] [address] Phone Care Team Providers Care Reverse Unit Operator Fisherman Name Role Phone Provider, None Primary Care [...] Comments Blood Pressure 186/118 03/02/2019 5:15 AM PROCESS ENGINEERING INTERN Pulse 95 03/02/2019 5:15 AM PROCESS ENGINEERING INTERN Temperature 36 C (96.8 F) 03/02/2019 2:16 AM PROCESS ENGINEERING INTERN Respiratory Rate 17 03/02/2019 5:00 AM PROCESS ENGINEERING INTERN Oxygen Saturation 96% 03/02/2019 5:15 AM PROCESS ENGINEERING INTERN Inhaled Oxygen Concentration - - Weight 111.1 kg (245 lb) 03/02/2019 2:16 AM PROCESS ENGINEERING INTERN Height 177.8 cm (5' 10 ) 03/02/2019 2:16 AM PROCESS ENGINEERING INTERN Body Mass Index 35.15 03/02/2019 2:16 AM PROCESS ENGINEERING INTERN Plan of Treatment Health Maintenance Due Date [...] age to complete this topic Care Teams Reverse Unit Operator Fisherman Relationship Specialty Start Date End Date Provider, None [place] PCP - General 06/14/18
== END 2024-07-08 18:42 | disposition home or self-care (01) ==
PROVIDERS: Emergency Provider Student in an Organized Health Care Education/Training Program
DX: M24.411 Recurrent dislocation, right shoulder (principal); I10 Essential (primary) hypertension; F17.290 Nicotine dependence, other tobacco product, uncomplicated
CPT/HCPCS: 23650; 36415; 73030; 80048; 85025; 96374; 96375; 99285; A4565; J1171; J2704

== ENCOUNTER 2024-07-17 10:00 | Outpatient (CLI) | payer OTHER, SELFPAY ==
--- NOTE | ~2024-07-17 | XR_ITS ---
Clinical Indication: Tobacco use PA and lateral views of the chest: Comparison: 11/17/2022 Findings: The lungs are clear, without evidence of focal consolidation or pleural effusion. Cardiome diastinal silhouette is within normal limits. Bones and soft tissues are unremarkable. Impression: Normal chest. Reviewed, dictated and finalized at location . Impression: Normal chest.
--- OUTSIDE RECORDS SUMMARY | 2024-07-17 10:41 | XMS_ITS | Clinical Summary ---
Author Organization [facility] Address [address], [address] [address] Phone Care Team Providers Care Wastewater Supervisor Name Role Phone Provider, None Primary Care [...] Comments Blood Pressure 186/118 03/02/2019 5:15 AM JELLY MAKER Pulse 95 03/02/2019 5:15 AM JELLY MAKER Temperature 36 C (96.8 F) 03/02/2019 2:16 AM JELLY MAKER Respiratory Rate 17 03/02/2019 5:00 AM JELLY MAKER Oxygen Saturation 96% 03/02/2019 5:15 AM JELLY MAKER Inhaled Oxygen Concentration - - Weight 111.1 kg (245 lb) 03/02/2019 2:16 AM JELLY MAKER Height 177.8 cm (5' 10 ) 03/02/2019 2:16 AM JELLY MAKER Body Mass Index 35.15 03/02/2019 2:16 AM JELLY MAKER Plan of Treatment Health Maintenance Due Date [...] age to complete this topic Care Teams Wastewater Supervisor Relationship Specialty Start Date End Date Provider, None [place] PCP - General 06/14/18
[2024-07-17 10:44] LABS: Hematocrit 44.9 % (42.0-52.0); Hemoglobin 15.1 g/dL (14.0-18.0); Mean Corpuscular HGB Conc 33.6 g/dl (32-36); Mean Corpuscular Hemoglobin 29.3 pg (26-34); Mean Corpuscular Volume 87.2 fl (80-100); Mean Platelet Volume 9.3 fl (7.4-10.4); Platelet Count Result 273 k/mm3 (150-375); Red Blood Count 5.15 M/mm3 (4.6-6.20); Red Cell Distribution Width 12.9 % (11.5-14.5); White Blood Count 8.1 K/mm3 (4.5-10.0)
[2024-07-17 10:56] LABS: Alanine Aminotransferase 39 U/L (6-50); Albumin Level 4.3 g/dL (3.5-5.1); Alkaline Phosphatase 50 U/L (38-126); Anion Gap 7 mmol/L (4-12); Aspartate Amino Transferase 24 U/L (17-59); Bilirubin,Total 0.5 mg/dL (0.2-1.3); Blood Urea Nitrogen 20 mg/dL (9-20); Calcium 9.2 mg/dL (8.4-10.2); Carbon Dioxide 29 mmol/L (22-30); Chloride 105 mmol/L (98-107); Cholesterol 212 mg/dL (0-200); Estimated Glomerular Filt Rate > 60; Glucose 100 mg/dL (65-110); HDL Direct 50 mg/dL; Potassium 4.1 mmol/L (3.4-5.0); Sodium 141 mmol/L (137-145); Triglycerides 194 mg/dL (<150)
[2024-07-17 11:01] LABS: Creatinine Urine 331.6 mg/dL
[2024-07-17 11:06] LABS: MALB Creatinine Ratio 4.9 mg/g (0-30); Microalbumin Urine Random 16.3 mg/L (0-16.7)
[2024-07-17 11:07] LABS: LDL Cholesterol Direct 113 mg/dL
[2024-07-17 11:25] LABS: Prostate Specific Antigen 0.5 ng/mL (< OR = 4.0)
[2024-07-17 11:36] LABS: Free T4 Free Thyroxine 0.89 ng/dL (0.78-2.19); Vitamin D 25 Hydroxy 30.5 ng/mL
[2024-07-17 13:14] LABS: Hemoglobin A1C 5.2 % (<5.7)
== END 2024-07-17 10:01 | disposition home or self-care (01) ==
PROVIDERS: PCP Emergency Medicine; Visit Provider Emergency Medicine
DX: F41.9 Anxiety disorder, unspecified (principal); Z00.00 Encounter for general adult medical examination without abnormal findings; F32.9 Major depressive disorder, single episode, unspecified; I10 Essential (primary) hypertension; Z72.0 Tobacco use; Z79.899 Other long term (current) drug therapy
CPT/HCPCS: 36415; 71046; 80053; 80061; 82043; 82306; 83036; 84153; 84439; 84443; 85027